=== PATIENT | male | born 1980 | race African-American/Black ===

== ENCOUNTER 2016-12-24 18:17 | Emergency (ER) | payer OTHER ==
[~2016-12-24] VITALS: Wt 100.0 kg
[2016-12-24] MEDS ORDERED: IBUPROFEN 800 MG TAB PO ONE (21:00)
[2016-12-24 21:10] LABS: ADD UMIC NO; UR ASCORBIC ACID NEGATIVE (NEGATIVE); UR BILIRUBIN (Dip) NEGATIVE (NEGATIVE); UR BLOOD (Dip) NEGATIVE (NEGATIVE); UR CLARITY CLEAR (CLEAR); UR COLOR YELLOW (YELLOW); UR GLUCOSE (Dip) 2+ mg/dL (NEGATIVE); UR KETONES (Dip) NEGATIVE (NEGATIVE); UR LEUKOCYTE ESTERASE (Dip) NEGATIVE Leu/ul (NEGATIVE); UR NITRITE (Dip) NEGATIVE (NEGATIVE); UR SPECIFIC GRAVITY (Dip) 1.028 (1.003-1.030); UR TOTAL PROTEIN (Dip) NEGATIVE (NEGATIVE); UR UROBILINOGEN (Dip) NEGATIVE (NEGATIVE)
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
--- NOTE | 2016-12-24 22:39 | RADRPT ---
PROCEDURE: XR Lumbar Spine. CLINICAL INDICATION: Pain. TECHNIQUE: X-ray of the lumbar spine were performed including AP, lateral, and coned L5-S1 views w as performed. COMPARISON: No prior studies are available for comparison. FINDINGS: Vertebral body stature and alignment maintained. There is no evidence of fracture or subluxation. IMPRESSION: No evidence of compression fracture. RPTAT: HIKT .Jose Angel Wong MD, MD Date Time Electronically viewed and signed by .Jose Angel Wong MD, on 12/24/2016 22:38 .T/
[2016-12-24] MEDS ORDERED: IBUP-1542 PO (22:50)
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
== END 2016-12-24 22:58 | disposition home or self-care (01) ==
LOC: FTE 18:17
DX: S39.92XA Unspecified injury of lower back, initial encounter (principal); V49.40XA Driver injured in collision with unspecified motor vehicles in traffic accident, initial encounter
CPT/HCPCS: 71010; 72072; 72100; 81003; Z7502; Z7610